=== PATIENT | female | born 1975 | race Caucasian/White ===

== ENCOUNTER 2021-11-21 13:45 | Emergency (ER) | payer BC ==
[2021-11-21 14:08] VITALS: BP 120/82; PULSE 74; TEMP 98.7; BMI 27.2
[2021-11-21] MEDS ORDERED: SODIUM CHLORIDE 0.9% 500 ML INFUS.BAG IV ONE (14:08)
[2021-11-21 14:45] LABS: HEMATOCRIT 38.8 % (32.4-45.2); HEMOGLOBIN 13.9 G/dL (10.7-15.3); MCH 30.9 pg (25.7-33.7); MCHC 35.8 g/dl (32.0-36.0); MEAN CELL VOLUME 86.5 fl (80-96); MEAN PLT VOLUME 8.5 fl (7.5-11.1); PLATELET COUNT 384.7 10^3/uL (134-434); RBC 4.49 10^6/uL (3.60-5.2); RDW 14.6 % (11.6-15.6); WHITE BLOOD COUNT 11.4 10^3/uL (4.0-10.8)
[2021-11-21 14:54] LABS: ALBUMIN 3.9 g/dl (3.4-5.0); BILIRUBIN,TOTAL 0.9 mg/dl (0.2-1); CALCIUM 9.8 mg/dl (8.5-10); CREATININE 0.5 mg/dl (0.55-1.3)
== END 2021-11-21 16:36 | disposition home or self-care (01) ==
LOC: FER 13:45
DX: R73.9 Hyperglycemia, unspecified (principal)
CPT/HCPCS: 36415; 80053; 81003; 81015; 81025; 82010; 82962; 85027; 99283-25